=== PATIENT | female | born 1960 | race Caucasian/White ===

== ENCOUNTER → 2022-03-28 | Outpatient (CLI) | payer MEDICAID, SELFPAY ==
--- NOTE | 2022-03-28 13:35 | MRI_ITS ---
STUDY: MRI RIGHT KNEE REASON FOR EXAM: Female, 61 years old. Right knee pain and swelling. TECHNIQUE: Standardized fat and water weighted pulse sequences were obtained in all 3 orthogonal planes. COMPARISON: X-rays of the right knee dated March 10, 2022. FINDINGS: Partial thickness radial tear of the posterior horn of the medial meniscus adjacent to the meniscal root with increased signal intensity within the body and anterior horn (coronal series 7 images 10-15). Mild extrusion of the body and anterior horn (coronal series 7 images 15-19). Marked thinning of the articular cartilage of the medial femorotibial compartment with reactive subchondral bone marrow edema of the medial femoral condyle and medial tibial plateau (coronal series 7 images 11-19). Mild MCL sprain (coronal series 7 image 15). Normal distal semimembranosus, gracilis and semitendinosus tendons. Normal lateral meniscus. Mild thinning of the articular cartilage of the lateral femorotibial compartment (coronal series 7 images 11-18). Normal lateral femoral condyle and tibial plateau. Normal proximal tibiofibular articulation. Normal lateral collateral (fibular) ligament. Normal popliteus tendon. Normal biceps femoris tendon. Normal anterior cruciate ligament (ACL). Normal posterior cruciate ligament (PCL). Slight lateral tilt of the patella with mild thinning of the articular cartilage of the patellofemoral compartment, most evident in the medial patellar facet articular cartilage (axial series 3 images 8-16). Normal medial and lateral patellar retinaculum. Normal quadriceps tendon. Normal patellar tendon. Infrapatellar bursitis (sagittal series 5 image 7). Moderate-sized joint effusion, medial plica and small popliteal cyst (axial series 3 images 7-18). Mild prepatellar subcutaneous soft tissue edema (sagittal series 5 image 12). The otherwise visualized osseous structures are unremarkable. MRI/Lower Ext Joint Only (Routine) IMPRESSION: Partial thickness radial tear of the posterior horn of the medial meniscus adjacent to the meniscal root with extrusion of the body and anterior horn of the medial meniscus. Marked thinning of the articular cartilage of the medial femorotibial compartment with reactive subchondral bone marrow edema as described. Mild MCL sprain. Mild thinning of the articular cartilage of the lateral femorotibial compartment. Slight lateral tilt of the patella with mild thinning of the articular cartilage of the patellofemoral compartment, particularly the medial patellar facet articular cartilage. Infrapatellar bursitis. Mild prepatellar subcutaneous soft tissue edema. Moderate-sized joint effusion, medial plica and small popliteal cyst. Electronically Signed: Maxime Bettencourt, at 15:58 EST ,
== END | disposition home or self-care (01) ==
LOC: MRI 13:35
PROVIDERS: PCP Student in an Organized Health Care Education/Training Program
DX: M23.91 Unspecified internal derangement of right knee (principal); M17.11 Unilateral primary osteoarthritis, right knee
CPT/HCPCS: 73721

== ENCOUNTER → 2022-08-22 | Outpatient (CLI) | payer MEDICAID, SELFPAY ==
--- NOTE | 2022-08-22 12:43 | CT_ITS ---
INDICATION: TEMPLATING FOR RIGHT TKA EXAMINATION: CT BONE - CT Lower Extremity W/O Contrast Injection TECHNIQUE: Helically acquired images were obtained of the right hip, knee, and ankle. 2-D reformats were performed by the technologist. A radiation dose optimization technique was used for this scan. IV Contrast dosage and agent: None. COMPARISON: 03/10/2022 right knee x-ray; 03/28/2022 right knee MRI FINDINGS: SOFT TISSUES: No soft tissue swelling or gas. No radiopaque foreign body. BONES/JOINTS: No acute fracture or subluxation. Mild femoral acetabular joint space narrowing and osteophytes. Tricompartmental joint space narrowing with medial compartment subchondral sclerosis and subcortical cysts. Moderate size suprapatellar knee joint effusion. Ankle mortise and subtalar joint appear normal. CT/Extremity Lower without Contra IMPRESSION: Tricompartmental right knee DJD with suprapatellar effusion detail above. Electronically Signed: Rancho Adam MD at 17:46 EDT ,
== END | disposition home or self-care (01) ==
PROVIDERS: PCP Student in an Organized Health Care Education/Training Program; Referring Provider Orthopaedic Surgery; Visit Provider Orthopaedic Surgery
DX: M17.11 Unilateral primary osteoarthritis, right knee (principal)
CPT/HCPCS: 73700

== ENCOUNTER 2022-09-09 13:40 | Observation (INO) | payer MEDICAID, SELFPAY ==
--- NOTE | 2022-08-27 12:03 | EKG12_ITS ---
Test Reason : PRE-OP Blood Pressure : / mmHG Vent. Rate : 063 BPM Atrial Rate : 063 BPM P-R Int : 120 ms QRS Dur : 100 ms QT Int : 424 ms P-R-T Axes : 039 030 057 degrees QTc Int : 433 ms Normal sinus rhythm Normal ECG Confirmed by SHADY WHITMORE, SAMMI ([id number]), order editor ANANYA ESPINAL ([id number]) on 08/28/2022 7:44:25 AM Referred By: Efren Rivera Confirmed By:SAMMI CARUSO MD
[2022-08-27 12:14] LABS: Absolute Lymphocyte Count 0.81 X10^3/uL (0.83-4.51); Absolute Neutrophil Count 4.1 X10^3/uL (2.0-7.7); Basophil# 0.04 X10^3/uL; Basophil% 0.7 % (0-1); Eosinophils% 3.5 % (0-5); Hematocrit 43.1 % (37-47); Hemoglobin 14.3 g/dL (12.0-15.0); Lymphocyte # 0.81 X10^3/ul (0.83-4.51); Lymphocyte % 14.2 % (19-41); Mean Corp Hgb Conc 33.2 g/dL (32-36); Mean Corpuscular Hgb 32.3 pg (27.0-32.0); Mean Corpuscular Volume 97.3 fL (81-99); Mean Platelet Vol. 10.7 fl (6.2-12.0); Monocyte# 0.48 X10^3/uL; Monocyte% 8.4 % (0-10); NRBC Flagged by Analyzer 0 % (0-5); Neutrophil # 4.14 X10^3/uL (2.7-7.7); Neutrophil % 72.7 % (47-70); Platelet Count 221 K/mm3 (150-450); RBC Distribution Width CV 13.3 % (11.6-14.6); RBC Distribution Width SD 47.2 fl (35.1-43.9); Red Blood Count 4.43 M/mm3 (4.2-5.4); White Blood Count 5.7 K/mm3 (4.4-11.0)
[2022-08-27 12:22] LABS: International Normalized Ratio 0.9; Prothrombin Time (Protime)PT. 12.2 SECONDS (11.7-14.9)
[2022-08-27 12:50] LABS: Hemoglobin A1c 4.6 % (3.8-5.6)
[2022-08-27 13:18] LABS: Anion Gap 7 (5-15); BUN 11 mg/dL (7-18); BUN/Creat Ratio 12.2 RATIO (10-20); Calcium,Total 9.5 mg/dL (8.5-10.1); Chloride 108 mmol/L (98-107); EST Glomerular Filtration Rate 67 mL/min (>60); Est Glom Filt Rate - Afr Amer 81 mL/min (>60); Glucose 120 mg/dL (74-106); Magnesium 2.2 mg/dL (1.6-2.6); Potassium 4.3 mmol/L (3.5-5.1); Sodium Level 139 mmol/L (136-145)
[2022-08-28 08:11] LABS: Fructosamine 216 umol/L (0-285)
[2022-09-09] VITALS (12 sets, daily range): BP systolic 110–130; BP diastolic 48–71; PULSE 52–79; RESP 11–19; TEMP 36.1–36.7; O2SAT 94–100; BMI 23.7
[2022-09-09] MEDS: Lactated Ringers 1,000 ML 15 ML IV (06:27)
[2022-09-09] MEDS: Magnesium 1 GM over 15 mins IV (06:31)
[2022-09-09] MEDS: Celecoxib 200 MG Capsule 400 MG PO (06:32)
[2022-09-09] MEDS: Scopolamine 1mg/72hr Patch 1 PATCH TD (06:32)
[2022-09-09] MEDS: Acetaminophen 500 MG Tablet 1000 MG PO ×3 (06:32→21:09)
[2022-09-09] MEDS: Gabapentin 600 MG Tablet PO (06:32)
[2022-09-09 06:40] LABS: Bedside Glucose 106 mg/dL (74-106)
--- NOTE | 2022-09-09 07:11 | HP.PCM_ITS ---
History and Physical Date of Admission: 09/09/22 [facility] [address] [place] [address] OFFICE VISIT Date of Service:? 08/27/22 MR#: [id number] Acct: [id number] Name:CHAVEZ ZUÑIGA Rep #: [id number] : 1960 ? ? Provider: Dr. Efren Rivera, DO Age/Sex:? 62/F ? ? Location: [facility] Status: Signed Intake Intake Visit Reasons:?right knee Is patient in pain?: Yes Allergies nitrofurantoin [From Macrobid] Allergy (Verified 08/27/22 10:34) AhuaaKlnmzni-PCJ-PuK Reductase Inhibitor Allergy (Verified 08/27/22 10:34) OtherSulfa (Sulfonamide Antibiotics) Allergy (Verified 08/27/22 10:34) Otherlatex Adverse Reaction (Mild, Verified 08/27/22 10:34) Rash Medications aspirin 81 mg tablet,delayed release (Adult Aspirin Regimen) 81 mg PO DAILY 03/10/22 [History Confirmed 08/27/22] bupropion HCl 150 mg 24 hr tablet, extended release 150 mg PO BID 03/10/22 [History Confirmed 08/27/22] calcium phosphate-vitamin D3 600 mg-125 unit tablet 1 tab PO DAILY 03/10/22 [History Confirmed 08/27/22] carvedilol 3.125 mg tablet 3.125 mg PO BID 03/10/22 [History Confirmed 08/27/22] evolocumab 140 mg/mL subcutaneous pen injector (Repatha SureTinoick) 140 mg subcut Q2W 03/10/22 [History Confirmed 08/27/22] vciorsnenlnf-Ep-baas-minerals 1 tab PO DAILY 03/10/22 [History Confirmed 08/27/22] nitroglycerin 0.4 mg sublingual tablet 0.4 mg sublingual Q5M PRN Chest Pain 03/10/22 [History Confirmed 08/27/22] pantoprazole 40 mg tablet,delayed release 40 mg PO DAILY 03/10/22 [History Confirmed 08/27/22] sertraline 100 mg tablet 100 mg PO DAILY 03/10/22 [History Confirmed 08/27/22] ticagrelor 90 mg tablet 90 mg PO BID 03/10/22 [History Confirmed 08/27/22] wheat dex-L. acid-aspartame 4 gram-500 million cell/6 gram oral powder (Fiber With Probiotic) 6 g PO TID 03/10/22 [History Confirmed 08/27/22] amlodipine 5 mg tablet (Norvasc) 5 mg PO DAILY 08/26/22 [History Confirmed 08/27/22] PFSH Medical History? Ambulates with cane Arthritis Bladder disease Bruising Cancer Cardiology follow-up encounter Depression Easy bruising Facial edema Former smoker High blood cholesterol History of echocardiogram History of renal disease History of stress test Hypertension Past heart attack Wears dentures Wears glasses Wears hearing aid Surgical History? H/O heart artery stent History of bowel resection History of cardiac catheterization History of extraction of renal calculus History of heart surgery History of intravascular stent placement Social History? Smoking Status:? Former smoker how long ago did patient quit smoking:? she continues to use nicotine alcohol intake:? current alcohol intake frequency: holidays/special occasions only HPI right knee Details: Parts of this documentation were recorded by a scribe, this documentation accurately reflects the service provided and the decisions made by me, Dr. Efren Rivera, DO 08/27/22 1029. CHAVEZ STEWART is a 62 year old F here today for right knee preop, DOS: 09/09/22. Denies any changes.? Continues to have significant knee pain . Ortho Exam General General: Yes no acute distress Neurologic: Yes alert and Yes oriented x3 Psychologic: Yes reasonable and appropriate Right Knee Skin/Wound: Yes CDI, No erythema, No ecchymosis and No swelling 1+: Effusion Knee ROM: Yes ROM-Extension -20 to 0 (full) and Yes ROM-Flexion 0-140 (112) Examination: Yes Med jt line tenderness and No Lat jt line tenderness Stability: NML: Anterior Drawer, NML: Posterior Drawer, NML: Valgus 30 and NML: Varus 30 Patella Grind: Yes KNEE: good ankle range of motion Head: Normocephalic Atraumatic Chest: symmetrical rise, non-labored breathing, no audible wheeze Abdomen: no guarding, non-rigid Supplemental Info 08/27/2022 x-ray right knee: Progression of knee arthrosis with more significant medial joint space narrowing compared to previous x-rays with severe medial joint space narrowing moderate patellofemoral medial patellar facet narrowing with subchondral cystic changes of the patella and trochlea 08/22/2022 CT scan: Tricompartmental right knee DJD with suprapatellar joint effusion subchondral sclerosis and subcortical cyst are seen about the knee 03/28/2022 MRI right knee:?Marked?thinning of the articular cartilage of the medial compartment with reactive subchondral bone marrow edema of the medial tibial plateau and medial femoral condyle, joint effusion subchondral cyst noted of the medial tibial plateau and medial femoral condyle, mild MCL sprain mild thinning of the cartilage of the lateral compartment and patellofemoral particularly the medial patellar facet partial-thickness, read as radial tear posterior horn medial meniscus however it looks like there is a full-thickness tear of the posterior root medial meniscus which would explain the medial subluxation 03/10/2022 x-ray right knee: Medial joint space narrowing, mild degenerative changes of the patellofemoral compartment Coding Level of Care Code Off vis,est,level 3 Diagnoses Osteoarthritis of right knee? M17.11 Assessment and Plan Assessment and Plan (1) Osteoarthritis of right knee: ?Status:?Acute ? ? ? Orders: Orders Knee 4 or More Views Today M17.11 - Unilateral primary osteoarthritis, right knee ? Plan Spoke with the patient about the surgery procedure and recovery. Gave the patient a walker, her soap and ensure drinks. Spoke with the patient about her pain control post op- she will have an adductor block, injections and then narcotics post op. Patient needs to be inpatient for surgery as she has a significant cardiac history history of myocardial infarction on multiple cardiac medications and needs her vitals monitored post op to ensure no postoperative cardiac event. She has stopped her Brilinta and sees her sec accountant tomorrow about stopping her asprin 7 days prior to surgery. She should stop Brilinta post op as she will be on eliquis post op after which she can resume the Brilinta, we will assure that is okay with her sec accountant. Patient has a split level house and will likely need to be transitioned to a rehab facility before she can navigate stairs safely. She had femoral stents in 2021 and we need an okay from the vascular doctor for her to be able to have a tourniquet applied to the right thigh during surgery.? Risks, benefits and alternatives of surgery reviewed including but not limited to bleeding, infection, nerve, artery and/or tissue damage, fracture, VTE, mechanical feel of the knee, continued pain, stiffness and expected post- operative course.? Follow up for 2 week post op or sooner if pain, swelling, numbness or associated symptoms, or concerns develop.? All questions answered. Patient in agreement of plan. 08/27/22 1314 <Electronically signed by Efren Rivera DO> Date Efren Rivera DO Cosigner Signature: Date (if applicable) I have examined the patient and the H&P has been reviewed. There are no clinical changes since date of exam. ? CC: ? ~
--- NOTE | 2022-09-09 07:45 | KNEE_PTH ---
PATIENT: CHAVEZ STEWART LOC: MS3 U#:[id number] AGE/SX: 62/F ROOM: [facility] [place]09/09/[address]: Dr. Efren Rivera DO : 1960 BED: 1 DIS: 09/10/2022 SPEC #: [id number] RECD: 09/09/22 11:08 STATUS: SHAHIDA ORTIZ #: [id number] LIZETH: 09/09/22 07:[address]: Efren Rivera DEPT: SURGICAL PATHOLOGY RECD BY: Keyla Dawson ENTERED: 09/09/22 11:40 SP TYPE: TOTAL KNEE OTHR DR: Dr. Vipul Heller DO Tissues: Knee, NOS Procedures: Decalcification bone/plaque Surgery Specimen Level IV HEADER OPERATION: ERAS, total knee replacement robotic arm assist PRE-OP DIAGNOSIS: Osteoarthritis of right knee TISSUE SUBMITTED: Bone and soft tissue of right knee MICROSCOPIC DIAGNOSIS Bone and tissue of right knee, total knee resection: Severe degenerative joint disease. Mild synovial hyperplasia. AM:anisa 09/11/2022 MICROSCOPIC DESCRIPTION Slides are reviewed. GROSS DESCRIPTION Received is one container designated bone and soft tissue right knee. The specimen consists of multiple fragments of may-yellow bone measuring in aggregate 14.0 x 10.0 x 1.5 cm. Also in the specimen container are multiple fragments of yellow-white soft tissue measuring in aggregate 6.0 x 5.0 x 0.7 cm. A number of bony fragments contain articular surfaces consistent with tibial plateau and femoral condyle and displaying prominent osteophyte formation, eburnation and bone erosion. Collective Bargaining Specialist sections are submitted in two cassettes as follows: 1 - soft tissue, 2 - bone after decalcification. / AM:anisa 09/09/2022 TC:[facility]: [id number], [id number]
[2022-09-09] MEDS: Cefazolin 2 GM in 0.9% Normal Saline 100 ML IV (07:57)
[2022-09-09] MEDS: dexAMETHasone 10 MG/ML Vial IV (08:05)
[2022-09-09] MEDS: TXA 1000mg in NS100 100ml (IVPB at Incision) 660 MG IV (08:05)
[2022-09-09] MEDS: TXA 1000mg in NS100 100ml (IVPB at Closure) 660 MG IV (08:32)
[2022-09-09] MEDS: Bupivacaine Mpf 0.5% 30 ML VIAL (09:56)
[2022-09-09] MEDS: 0.9% Normal Saline (Pres. free 10 ML Vial (09:56)
[2022-09-09] MEDS: Epinephrine (1 mg/ml) 1 MG/ML VIAL (09:56)
[2022-09-09] MEDS: dexAMETHasone 4 MG/ML Vial (09:56)
--- NOTE | 2022-09-09 10:24 | OP.PCM_ITS ---
Operative Report Date of Procedure: 09/09/22 Preoperative diagnosis: Right knee DJD Postoperative diagnosis: Same Procedure: Right total knee arthroplasty CT guided Robotic Assisted Implant: Winslow triathlon press fit, femoral component size 3, tibial baseplate size 4, asymmetric patella size 32 cemented, polyethylene X3 size 9 CS Anesthesia: Spinal with adductor canal block Tourniquet time: 12 minutes at 300 mmHg Complications: None Condition: Stable to PACU Estimated blood loss: 200 cc Indication for procedure: This is a 62-year-old female with long standing degenerative joint disease of the knee who has failed conservative treatment and wished to proceed with elective total knee arthroplasty. Risk benefits and alte rnatives were reviewed including; risk of bleeding, infection, nerve artery and tissue damage, continued pain, postoperative stiffness, venous thromboembolism, need for postoperative rehabilitation, mechanical feel to the knee, and expected postoperative course. The pre- operative CT and templating was performed with component sizing. Procedure: The patient was met in the preoperative holding area. The operative extremity was identified by both patient and physician and was marked. Patient was met by anesthesia. An adductor canal block was placed by anesthesia postoperatively the patient was brought back to the operating room on a wheeled cart and transferred to the operating table in the supine position. Anesthesia was started. A well-padded tourniquet was placed on the operative extremity. The patient was prepped and draped in the usual sterile fashion. A timeout was called to ensure the proper patient procedure and extremity were being contemplated. An esmarch was used to exsanguinate the extremity. The tourniquet was inflated. A 10 blade scalpel was used to make a midline incision down through the skin and subcutaneous tissue. Skin retractors placed. Bovie and Aquamantis were used to perform meticulous hemostasis. full-thickness flaps were elevated medial and lateral along the joint capsule. A deep blade scalpel was used to perform a medial parapatellar arthrotomy. The knee was brought to full extension. A bovie was used to release the soft tissues off the most proximal aspect of the medial tibial plateau, a three-quarter inch curved osteotome was also used in this process. The infrapatellar fat pad was excised. The suprapatellar fat pad was excised partially anteriorolateraly and portion the anterioromedial pad was elevated from the femur. At this point our intra- articular femoral array was placed at a 45 degree angle proximal and posterior to the medial epicondyle. femoral checkpoint was placed at this time. Our tibial array was placed greater than 1 hands breath below the incision at a 20 degree angle stab incisions were made with a 15 blade scalpel and pins were placed and attached to the tibial array , tibial checkpoint was placed in the proximal tibial metaphysis. Tourniquet was let down. At this point registration payton were taken throughout the knee . Once the knee was registered we then tensioned the medial and lateral ligaments in extension and 90 degrees of flexion. We then used these numbers to adjust our components within parameters to balance the knee in both flexion and extension once this was done on our monitor we then proceeded with using the robotic arm to make our tibial plateau cut, anterior and posterior chamfer and distal femur cuts. we removed the cut fragments with the use of a bovie and Lauro, we did use a lamina sr. operations manager to insure we visualized and removed all posterior osteophytes and at this time also used the Aquamantis on the posterior joint capsule. we then trialed and achieved the desired plan with a well-balanced knee. we used the green probe to tracy the corresponding tibial rotation based on our CT template. Lug holes were drilled in the femur the tibia preparation was co mpleted with the appropriate sized base plate pinned based on previous rotation tracy. An appropriate sized fin punch was used on the tibia and 4 corner drill was used for the press fit component and the patella was prepared by first using a caliper to ensure sufficient bone stock and a patellar reamer to remove the desired amount of bone. lug holes drilled for an asymmetric poly. We then brought the knee through range of motion with excellent patellar tracking. We thoroughly irrigated the knee. Trial components were removed a posterior capsular injection was preformed with our standard cocktail. In addition the aqua Mantis was also used to aid in hemostasis. Betadine rinse was allowed to sit and washed out completely. Components were press-fit into place. The patella was cemented, Aricept rinse was then used followed by several more liters of irrigation after it was allowed to sit. The joint capsule was closed with #1 Ethibond [id number] followed by Vicryl in the subcutaneous tissues with hesham in the skin. Arrays and checkpoints were removed prior to closure all counts were correct stab incisions were closed with a staple standard dressing in the form of Mepilex AG for the main incision and a small Mepilex over the pin holes. Thigh-high ZAMZAM hose applied over top of dressing. Patient tolerated the procedure well and was directed to PACU in stable conditio n . There were no intraoperative complications.
--- NOTE | 2022-09-09 10:26 | RAD_ITS ---
STUDY: X-RAY - RIGHT KNEE REASON FOR EXAM: Female, 62 years old. post op -- AP and Lateral xray of operative knee in PACU TECHNIQUE: AP and lateral view(s) of the knee. COMPARISON: August 27, 2022 FINDINGS: Knee prosthesis has been placed in anatomic alignment and position. There are surgical hesham seen in the soft tissues at the operative site. There is residual gas and fluid within the joint post surgically. . RAD/Knee 1 or 2 Views IMPRESSION: Postsurgical changes status post right knee prosthesis placement Electronically Signed: Jose Travis MD at 18:36 EDT ,
[2022-09-09] MEDS: Lactated Ringers 1,000 ML 999 ML IV (11:05)
[2022-09-09] MEDS: Cefazolin 1 GM/50 ML BAG IV ×2 (11:11→20:47)
[2022-09-09] MEDS: Lactated Ringers 1,000 ML 125 ML IV (13:01)
[2022-09-09] MEDS: Ketorolac 15 MG/ML Vial IV (18:18)
[2022-09-09] MEDS: oxyCODONE 5 MG Tablet PO (21:06)
[2022-09-09] MEDS: Carvedilol 3.125 MG TABLET PO (21:09)
[2022-09-09] MEDS: Senna/Docusate Sodium 1 Tablet 2 TABLET PO (21:09)
[2022-09-09] MEDS: buPROPion (SR) 150 MG Tablet.SA PO (21:10)
[2022-09-10] MEDS: Cefazolin 1 GM/50 ML BAG IV (04:23)
[2022-09-10 04:25] VITALS: BP 117/54; PULSE 65; RESP 16; TEMP 36.8; O2SAT 96
[2022-09-10] MEDS: oxyCODONE 5 MG Tablet PO ×2 (04:32→10:17)
[2022-09-10] MEDS: Acetaminophen 500 MG Tablet 1000 MG PO (06:31)
[2022-09-10 06:34] LABS: Hemoglobin 10.4 g/dL (12.0-15.0); Mean Corp Hgb Conc 32.5 g/dL (32-36); Mean Corpuscular Hgb 31.9 pg (27.0-32.0); Mean Corpuscular Volume 98.2 fL (81-99); Mean Platelet Vol. 10.8 fl (6.2-12.0); Platelet Count 172 K/mm3 (150-450); RBC Distribution Width SD 46.5 fl (35.1-43.9); Red Blood Count 3.26 M/mm3 (4.2-5.4); White Blood Count 8.5 K/mm3 (4.4-11.0)
--- NOTE | 2022-09-10 07:10 | PCM.PN.ORT ---
Subjective Subjective Seen and examined doing well pain controlled. Denies nausea vomiting shortness of breath or chest pain dizziness or lightheadedness. Has ambulated the halls well. Objective Data Objective Data Vital Signs: Vital Signs Temp Pulse Resp BP Pulse Ox O2 Del Method O2 Flow Rate 98.2 F 65 16 117/54 L 96 Room Air 4 09/10/22 04:25 09/10/22 04:25 09/10/22 04:25 09/10/22 04:25 09/10/22 04:25 09/10/22 04:25 09/09/22 11:52 Oxygen Flow Rate (L/min) 4 Oxygen Delivery Method Room Air Weight: 144 lb 9.6 oz Body Mass Index (BMI) 23.7 Intake & Output: Intake and Output for Last 24 Hours 09/08/22 09/09/22 09/10/22 23:59 23:59 23:59 Intake Total 3130.5 / 3130.5 491.25 / 491.25 Balance 3130.5 / 3130.5 491.25 / 491.25 Lab / Micro Data Result Diagrams: 09/10/22 05:30 08/27/22 11:52 Labs: Laboratory Results - last 24 hr 09/10/22 05:30: WBC 8.5, RBC 3.26 L, Hgb 10.4 L, Hct 32.0 L, MCV 98.2, MCH 31.9, MCHC 32.5, RDW Std Deviation 46.5 H, RDW Coeff of Disha 13.0, Plt Count 172, MPV 10.8 Micro: Microbiology 08/27/22 11:52 Nasal Secretion Nasal Screen MRSA/MSSA - Final Radiography Diagnostic Testing: Radiology Impression Knee X-Ray 09/09/22 10:26 IMPRESSION: Postsurgical changes status post right knee prosthesis placement Electronically Signed: Jose Travis MD at 18:36 EDT , Physical Exam Const alert, oriented x3 and no apparent distress General Appearance: cooperative Extremity Extremity Narrative: Dressings clean dry intact compartment soft neurovascular intact right lower extremity EHL tibialis anterior gastrocsoleus intact and station light touch palpable pedal pulses Assessment & Plan Assessment/Plan (1) Status post total right knee replacement: PLAN: Plan Postop day #1 right total knee arthroplasty Doing well pain controlled PT OT weightbearing as tolerated encourage knee range of motion DVT prophylaxis Stephane HOGANs ZAMZAM hodges DC home after a.m. PT Start outpatient physical therapy immediately follow-up in the office 2 weeks
--- NOTE | 2022-09-10 07:13 | DCINST_ITS ---
Discharge Instructions Diet Discharge Diet: No restrictions Dressing / Incision Call your doctor if you observe: Shortness of breath and Chest pain Additional Dressing/Incision Instructions:: Ice and elevate lower extremities 2 weeks while not ambulating. Ambulation is encouraged. Weight bearing as tolerated. Use assistive devise for stability. Encourage FULL knee extension and flexion 1 time EVERY time you get up and down and MULTIPLE times per day. No showering 72 hours after surgery. Begin showering postop day #3. Remove the dressing prior to shower and gently wash with warm water and antibacterial soap then pat dry and place abdominal pad (or plain gauze) and ZAMZAM hose over top. This is to be done daily. Do not submerge for 3 weeks. If not showering daily after the initial 72 hours then you must clean incision and change dressing daily. Do not allow animals near the incision area. Keep clean. Follow anti- coagulation recommendations as prescribed. Do not take any NSAIDs while on blood thinner. Do not take any additional narcotic pain medication other than what was prescribed on your surgery day without discussing with physician. Narcotic medication can be addictive. Do not drink alcohol while taking narcotics. Supplement narcotic prescription with acetaminophen 1000 mg 4 times a day. Start physical therapy. If you are not currently scheduled for physical therapy or you are unsure of appointment time please call office [facility] to arrange. Call Dr. Rivera with any concerns. Follow Up Care Please Follow Up With: Efren Rivera DO When: 2 weeks Test Results: Test results from this visit will be discussed in further detail at your follow- up appointment, if applicable. Discharge Plan Admission Admit Date/Time: 09/09/22 13:40 Primary Reason for Your Visit: Right total knee arthroplasty Attending Provider: Efren Rivera Primary Care Provider: Vipul Heller Discharge Orders/Prescriptions Prescriptions: New acetaminophen [acetaminophen] 500 mg tablet 1,000 mg PO Q6H PRN Qty: 100 0RF Eliquis 2.5 mg tablet 2.5 mg PO BID Qty: 28 0RF oxycodone 5 mg tablet 5 - 10 mg PO Q4H PRN (Reason: pain) 7 Days Qty: 60 0RF Continued aspirin [Adult Aspirin Regimen] 81 mg tablet,delayed release (DR/EC) 81 mg PO DAILY bupropion HCl 150 mg tablet extended release 24 hr 150 mg PO BID carvedilol 3.125 mg tablet 3.125 mg PO BID Rx Instructions: must administer with a meal/food nitroglycerin 0.4 mg tablet, sublingual 0.4 mg sublingual Q5M PRN (Reason: Chest Pain) Rx Instructions: do not exceed 3 doses per episode pantoprazole 40 mg tablet,delayed release (DR/EC) 40 mg PO DAILY calcium phosphate-vitamin D3 600-125 mg-unit tablet 1 tab PO DAILY Fiber With Probiotic 4 g-500 million cell/6 gram powder 6 g PO TID Repatha SureClick 140 mg/mL pen injector 140 mg subcut Q2W Rx Instructions: ON WEDNESDAYS sertraline 100 mg tablet 100 mg PO DAILY agdalybafxsb-Yz-zowu-minerals Tablet 1 tab PO DAILY amlodipine [Norvasc] 5 mg Tablet 5 mg PO DAILY Held ticagrelor 90 mg tablet 90 mg PO BID Hold Instructions: Resume on 09/25/22. Resume day after completion of Eliquis Other Ambulatory Orders: 12 Lead EKG (Routine) Timeframe: [id number] Location: None Selected Ordered By: Dr. Efren Rivera Referrals / Follow Up: Vipul Helelr DO [Primary Care Provider] -
[2022-09-10 07:15] LABS: Anion Gap 8 (5-15); BUN 15 mg/dL (7-18); BUN/Creat Ratio 16.9 RATIO (10-20); Calcium,Total 8.5 mg/dL (8.5-10.1); Chloride 107 mmol/L (98-107); Creatinine, Serum 0.89 mg/dL (0.55-1.02); EST Glomerular Filtration Rate 68 mL/min (>60); Est Glom Filt Rate - Afr Amer 82 mL/min (>60); Estimated Creatinine Clearance 58.22 ml/min; Glucose 136 mg/dL (74-106); Sodium Level 141 mmol/L (136-145)
[2022-09-10 07:53] VITALS: O2SAT 96
[2022-09-10 08:55] VITALS: BP 123/61; PULSE 67; RESP 14; TEMP 36.6; O2SAT 98
[2022-09-10] MEDS: Multivitamins,Ther W-Minerals Tablet 1 TABLET PO (09:04)
[2022-09-10] MEDS: APIXABAN 2.5 MG TABLET (WCH) PO (09:04)
[2022-09-10] MEDS: Calcium Carb/Vitamin D 1 TABLET Tablet PO (09:05)
[2022-09-10] MEDS: amLODIPine 5 MG Tablet PO (09:05)
[2022-09-10] MEDS: Carvedilol 3.125 MG TABLET PO (09:05)
[2022-09-10] MEDS: buPROPion (SR) 150 MG Tablet.SA PO (09:06)
[2022-09-10] MEDS: Pantoprazole Sodium 40 MG Tablet PO (09:06)
[2022-09-10] MEDS: Senna/Docusate Sodium 1 Tablet 2 TABLET PO (09:06)
[2022-09-10] MEDS: Sertraline 100 MG Tablet PO (09:06)
--- NOTE | 2022-09-10 09:33 | CASEMGMT ---
TC foreign [place] at [facility], pt cost is zero for eliquis.
--- NOTE | 2022-09-10 09:40 | CASEMGMT ---
MAKENZIE ARANGO Assessment: Face to Face with pt for initial transition planning/care coordination assessment. MAKENZIE ARANGO introduced self and role at [facility], pt voices understanding and consents to assessment. Pt is A/O x4 and answers all questions appropriately at this time. Pt lying in bed in no distress. Care providers, pharmacy, and demographics verified/updated. Admitting Dx: Right total knee robotic PCP:Yoselyn Specialists:joshua Rivera; Cardio at [facility] Preferred Pharmacy: [facility] Insurance: [facility] Prescription Benefit: yes [place]: [place], Living Arrangements: Pt lives with and a 7 and 13 year old child in a 3 story home with 3 steps to enter. Pt reports she was I in ADL's prior to surgery. She plans to stay on the main living area where there is a bedroom and bathroom. Pt able to assist as needed. Pt denies concerns at home. Transportation: Pt drives in town only. Pt provides transportation. DME/HHC/SNF: Pt has a FWW, crutch that she has been using the last 4 mos, grab bars in the bathroom and polar care. Pt denies hx of HHC or SNF stays. Pt states no concerns with going home at time of dc. She has therapy set up at [facility] to start on Thursday. Pt states no further concerns/needs. CM to follow. Advised pt to ask CM if any further question/concerns/needs arise, voices understanding. Pt Goal: Home with outpt therapy set up Plan: Home with outpt therapy set up TC to Pharmacy to deliver pt meds to room per her request.
== END 2022-09-10 10:25 | disposition home or self-care (01) ==
LOC: SDC 13:48 → MS3 13:48
PROVIDERS: Admitting Provider Orthopaedic Surgery; PCP Nurse Practitioner Adult Health; Referring Provider Orthopaedic Surgery; Visit Provider Orthopaedic Surgery
PROC: 0SRC0JZ Replacement of Right Knee Joint with Synthetic Substitute, Open Approach (ICD-10-PCS; CPT 27447; principal; 2022-09-09 07:15)
DX: M17.11 Unilateral primary osteoarthritis, right knee (principal); Z87.891 Personal history of nicotine dependence; Z79.82 Long term (current) use of aspirin; Z79.899 Other long term (current) drug therapy; E78.00 Pure hypercholesterolemia, unspecified; F32.A Depression, unspecified; R60.0 Localized edema; R23.3 Spontaneous ecchymoses; I10 Essential (primary) hypertension
CPT/HCPCS: 27447; S2900; 01402; 64447; 36415; 73560; 80048; 82962; 82985; 83036; 83735; 85025; 85027; 85610; 85730; 86850; 86900; 86901; 87081; 88305; 88311; 93005; 94668; 96365; 96366; 96375; 97110; 97162; 97166; 97530; 97535; 99221; 99252; 99406; C1776; J7050; J7120; G0378; G0463; J2405; J3475; J3490

== ENCOUNTER → 2022-12-03 | Outpatient (CLI) | payer MEDICAID, SELFPAY ==
--- NOTE | 2022-12-03 12:59 | CT_ITS ---
STUDY: CT CERVICAL SPINE WITHOUT CONTRAST REASON FOR EXAM: Female, 62 years old. Abnormal C-SPINE xray, FALL 11/07/22 RADIATION DOSAGE (If Supplied By Facility): CTDIvol = ( 16.77 ) mGy, DLP = ( 369.22 ) mGycm TECHNIQUE: High resolution transaxial imaging was performed without contrast material. Sagittal and coronal images were reconstructed. Individualized dose optimization techniques were used for this CT. COMPARISON: Comparison is made with prior radiographs of the cervical spine dated November 07, 2022. FINDINGS: Normal craniovertebral junction. There are degenerative changes of the anterior atlantoaxial articulation. Normal odontoid process. There is straightening of the normal cervical lordosis. Normal vertebral bodies and posterior osseous elements. C2-3: Normal endplates. Normal disc height and morphology. Normal central canal and intervertebral neuroforamina. C3-4: Normal endplates. Normal disc height and morphology. Normal central canal and intervertebral neuroforamina. C4-5: Normal endplates. Normal disc height and morphology. Normal central canal and intervertebral neuroforamina. C5-6: Moderate degree of disc space narrowing at the C5-C6 level with uncovertebral arthrosis and bilateral neural foraminal stenosis worse on the right side. C6-7: Moderate degree disc space narrowing with anterior spondylosis. Uncovertebral arthrosis. Bilateral neural foraminal stenosis. C7-T1: Normal endplates. Normal disc height and morphology. Normal central canal and intervertebral neuroforamina. Normal visualized soft tissue structures. CT/Spine Cervical without Contras IMPRESSION: Multilevel degenerative changes, as described above. Electronically Signed: Krzysztof Valencia MD at 15:47 EDT ,
== END | disposition home or self-care (01) ==
LOC: CT 12:56
PROVIDERS: PCP Nurse Practitioner Adult Health; Referring Provider Orthopaedic Surgery; Visit Provider Orthopaedic Surgery
DX: M50.30 Other cervical disc degeneration, unspecified cervical region (principal)
CPT/HCPCS: 72125